=== PATIENT | female | born 1975 | race American Indian/Alaskan Native ===

== ENCOUNTER 2021-06-07 08:01 | Emergency (ER) | payer BC, OTHER ==
[~2021-06-07] VITALS: Ht 170.2 cm; Wt 81.7 kg
[2021-06-07] MEDS ORDERED: NASAL DECONGEST30 MG PO (09:07)
== END 2021-06-07 09:27 | disposition home or self-care (01) ==
LOC: ED 08:01
DX: M25.512 Pain in left shoulder (principal); H69.92 Unspecified Eustachian tube disorder, left ear; T50.B95A Adverse effect of other viral vaccines, initial encounter
CPT/HCPCS: 99283